=== PATIENT | female | born 1980 | race Caucasian/White ===

== ENCOUNTER 2018-04-07 03:48 | Emergency (ER) | payer BC, SELFPAY ==
[2018-04-07] MEDS ORDERED: Ketorolac Tromethamine 60 MG/2 ML VIAL ONE (04:50)
[2018-04-07] MEDS ORDERED: methylPREDNISolone Sod Succ/PF 125 MG/2 ML VIAL ONE (04:50)
== END 2018-04-07 05:35 | disposition home or self-care (01) ==
LOC: ERS 03:48
DX: G89.29 Other chronic pain (principal); M54.5 Low back pain; F17.210 Nicotine dependence, cigarettes, uncomplicated; Z79.899 Other long term (current) drug therapy
CPT/HCPCS: 96372; J1885; J2930

== ENCOUNTER 2018-12-24 17:49 | Emergency (ER) | payer SELFPAY ==
[2018-12-24] MEDS ORDERED: Ketorolac Tromethamine 60 MG/2 ML VIAL ONE (18:24)
[2018-12-24] MEDS ORDERED: Ketorolac Tromethamine 30 MG/ML VIAL ONE (18:25)
[2018-12-24 18:31] LABS: BHCG - Serum Negative (NEGATIVE); Pregs Control Background? CLEAR/WHITE (CLR/WHITE); Pregs Control Bar Appear? YES (CONTROL BAR)
[2018-12-24 18:34] LABS: #Basophils 0.1 thou/uL (0.0-0.2); #Eosinphils 0.1 thou/uL (0.0-0.7); #Lymphocytes 2.4 thou/uL (1.20-3.40); #Monocytes 0.7 thou/uL (0.11-0.59); #Neutrophils 6.5 thou/uL (1.40-6.50); %Basophils 0.8 % (0.0-1.0); %Eosinophils 1.5 % (0.0-10.0); %Lymphocytes 24.5 % (21.0-51.0); %Monocytes 7.2 % (0.0-10.0); %Neutrophils 66.1 % (42.0-75.0); Hemoglobin 13.2 g/dL (12.0-16.0); Mean Corpuscular HGB CONC 34.8 g/dL (32.0-36.0); Mean Corpuscular Hemoglobin 34.2 pg (27.0-31.0); Mean Corpuscular Volume 98.1 fL (78.0-98.0); Mean Platelet Volume 8.9 fL (7.4-10.4); Platelet Count 205 thou/uL (130-400); RBC Distribution Width 12.1 % (11.5-14.5); Red Blood Cell (RBC) Count 3.85 mill/uL (4.20-5.40); White Blood Cell (WBC) Count 9.9 thou/uL (4.8-10.8)
--- NOTE | 2018-12-24 19:36 | MRI ---
MR OF THE LUMBAR SPINE WITHOUT CONTRAST: 12/24/18 INDICATION: History of left leg and back pain concern for cauda equina syndrome. COMPARISON: Radiographs of the lumbar spine dated 11/19/14. FINDINGS: No acute fracture is evident. Bone marrow signal is intensity is within normal limits. The conus is s een to terminate at L1. The visualized retroperitoneum and perivertebral soft tissues are normal appearing. At L5-S1, there is an asymmetric to the left broad based disc bulge but no appreciable central toi l or neural foraminal narrowing. At L4-5, there is no appreciable central canal narrowing. There is a mild broad based disc bulge. The re is a superimposed annular fissure within the left foraminal region measuring approximately 3 mm. At L3-4, there is a broad based bulge with facet hypertrophy without appreciable central canal or kannan ral foraminal narrowing. At L2-3, there is no appreciable central canal or neural foraminal narrowing. At L1-2, there is no appreciable central canal or neural foraminal narrowing. IMPRESSION: Mild spondylosis of the lumbar spine without appreciable central canal or neural foraminal narrowing. POS: BH
[2018-12-24 20:02] LABS: Albumin 3.8 g/dL (3.5-5.0)
[2018-12-24 20:03] LABS: Chloride 109 mmol/L (98-107); Potassium 3.7 mmol/L (3.5-5.1); Sodium 139 mmol/L (136-145)
[2018-12-24 20:04] LABS: Calcium 9.2 mg/dL (7.8-10.44); Glucose 63 mg/dL (70-105)
[2018-12-24 20:05] LABS: Globulin 2.8 g/dL (2.4-3.5); Protein, Total 6.6 g/dL (6.0-8.3)
[2018-12-24 20:06] LABS: Anion Gap 12 mmol/L (10-20); Bilirubin, Total 0.2 mg/dL (0.2-1.2); Carbon Dioxide 22 mmol/L (22-29)
[2018-12-24 20:07] LABS: Alkaline Phosphatase 54 U/L (40-150)
[2018-12-24 20:08] LABS: BUN (Urea Nitrogen) 7 mg/dL (7.0-18.7); Calc. Creatinine Clearance 0 mL/min (70-130); Estimated GFR-MDRD 67
[2018-12-24 20:10] LABS: ALT (SGPT) 12 U/L (8-55); AST (SGOT) 10 U/L (5-34); Lipase 16 U/L (8-78)
== END 2018-12-24 20:20 | disposition home or self-care (01) ==
LOC: ERS 17:49
DX: M51.26 Other intervertebral disc displacement, lumbar region (principal); F17.210 Nicotine dependence, cigarettes, uncomplicated; Z79.899 Other long term (current) drug therapy
CPT/HCPCS: 36415; 72148; 80053; 83690; 84703; 85025; 96361; 96374; J1885

== ENCOUNTER 2019-12-25 18:47 | Emergency (ER) | payer OTHER, SELFPAY ==
[2019-12-26 12:36] LABS: SARS-CoV-2 MS2 Positive; SARS-CoV-2 N Gene Negative; SARS-CoV-2 S Gene Negative; SARS-CoV-2 by NAA Not Detected (NotDetected); SARS-CoV-2 orf1ab Negative
== END 2019-12-25 19:00 | disposition home or self-care (01) ==
LOC: ERS 18:47
DX: R50.9 Fever, unspecified (principal); R52 Pain, unspecified; R19.7 Diarrhea, unspecified; R11.0 Nausea; Z20.828 Contact with and (suspected) exposure to other viral communicable diseases; F17.210 Nicotine dependence, cigarettes, uncomplicated
CPT/HCPCS: 87635; 99283; U0003